=== PATIENT | female | born 1950 | race African-American/Black ===

== ENCOUNTER 2024-12-08 19:03 | Emergency (ER) | payer OTHER ==
[~2024-12-08] VITALS: Ht 165.1 cm; Wt 70.0 kg
[2024-12-08 19:09] VITALS: O2SAT 99
[2024-12-08 19:39] VITALS: TEMP 36.6
[2024-12-08] MEDS: SODIUM CHLORIDE 0.9% 1,000 ML IV ONE (19:45)
[2024-12-08 20:15] LABS: BASOPHILS % 1.6 % (0.0-2.0); EOSINOPHILS % 2.8 % (0.0-5.0); HEMATOCRIT. 33.1 % (36.0-48.0); HEMOGLOBIN. 10.4 g/dL (12.0-16.0); LYMPHOCYTES % 38.6 % (20.0-50.0); MEAN PLATELET VOLUME 9.7 fl (7.4-10.4); MONOCYTES % 12.0 % (2.0-8.0); NEUTROPHILS % 45.0 % (40.0-76.0); PLATELET 174 x1000/uL (130-400); RED BLOOD CELL COUNT 4.92 mill/uL (4.2-5.4); RED CELL DISTRIBUTION WIDTH 15.1 % (11.6-14.6)
[2024-12-08 20:18] LABS: ADD RBC MORPHOLOGY YES
[2024-12-08 20:25] LABS: INR 1.0
[2024-12-08 20:29] LABS: CREATININE 0.9 mg/dL (0.6-1.0); UREA NITROGEN BLOOD 21 mg/dL (9-23)
[2024-12-08 20:30] LABS: ETHANOL BLOOD < 10 mg/dL (<10); TROPONIN I HIGH SENSITIVITY 27 ng/L (3.0-34)
[2024-12-08 20:31] LABS: ASPARTATE AMINOTRANSFERASE 18 IU/L (<34); BILIRUBIN DIRECT 0.1 mg/dL (<=3.0); BILIRUBIN TOTAL 0.4 mg/dL (0.1-1.0); PROTEIN TOTAL 6.9 g/dL (6.0-8.3)
[2024-12-08 20:34] LABS: PLATELET ESTIMATE NORMAL
[2024-12-08] MEDS: LORAZEPAM 2MG/ML UD SYRINGE IM SCH (22:12)
[2024-12-08 23:44] VITALS: BP 121/61; PULSE 91; RESP 15; O2SAT 99
== END 2024-12-09 01:18 ==
LOC: ER 19:03 → EDBD 19:03 → EDBEDREQ 21:47 → EDBEDREQTM 21:47 → ER 12-09 01:18 → CMPBEDREQ 12-09 09:55
DX: R41.82 Altered mental status, unspecified (principal); F03.90 Unspecified dementia, unspecified severity, without behavioral disturbance, psychotic disturbance, mood disturbance, and anxiety; Z79.899 Other long term (current) drug therapy
CPT/HCPCS: 80076; 80048; 80307; 80329; 80320; 83880; 85025; 85610; 85730; 84484; 36415; 71045; 70450; 93005; 96360; 96372; 99285; J2060; J7030; A4606; G0480